=== PATIENT | male | born 1955 | race Asian ===

== ENCOUNTER 2021-10-31 17:37 | Emergency (ER) | payer OTHER ==
[2021-10-31 18:00] VITALS: BP 125/74; PULSE 77; TEMP 98; BMI 26.3
[2021-10-31] MEDS ORDERED: ACETAMINOPHEN 500 MG TABLET (FP) ONE (18:53)
[2021-10-31] MEDS ORDERED: ACETAMINOPHEN 500 MG TABLET (FP) PO ONE (18:53)
== END 2021-10-31 21:30 | disposition home or self-care (01) ==
LOC: JER 17:37 → JERFT 17:37
DX: S09.90XA Unspecified injury of head, initial encounter (principal); S00.81XA Abrasion of other part of head, initial encounter; V18.0XXA Pedal cycle driver injured in noncollision transport accident in nontraffic accident, initial encounter
CPT/HCPCS: 70450-TC; 70486-TC; 73070-TC-RT-FY; 99285-25